=== PATIENT | male | born 1970 | race Caucasian/White ===

== ENCOUNTER → 2022-08-28 08:59 | Outpatient (CLI) | payer OTHER, SELFPAY ==
--- NOTE | ~2022-08-28 | XR_ITS ---
Right Knee Technique: AP, lateral, and sunrise views were obtained. Clinical History: Pain Findings: No fracture or dislocation is seen. Findings suggestive of chronic Lester-Schlatter's disea se noted. Osseous alignment is anatomic. Joint spaces are preserved without degenerative or erosive c hange. Soft tissues are unremarkable. No joint effusion is seen. Impression: No acute abnormality seen. Probable chronic Lester-Schlatter's disease. Reviewed, dictated and finalized at location M. Impression: No acute abnormality seen. Probable chronic Florence-Schlatter's disease.
== END ==
PROVIDERS: PCP Nurse Practitioner Family; Visit Provider Nurse Practitioner Family
DX: M25.561 Pain in right knee (principal)
CPT/HCPCS: 73564

== ENCOUNTER 2023-07-20 09:40 | Emergency (ER) | payer OTHER, SELFPAY ==
--- NOTE | ~2023-07-20 | XR_ITS ---
EXAMINATION: XR shoulder RT min 2V, XR humerus RT DATE: 07/20/2023 10:48 INDICATION: Right shoulder pain post fall TECHNIQUE: 1. AP internally and externally rotated, AP oblique externally rotated and transscapular Y views of t he affected shoulder were obtained. 2. Internal and externally rotated views of the right humerus were obtained. COMPARISON: None FINDINGS: Normal alignment at the right shoulder and elbow. No acute fracture. Old healed fractures of the pos terolateral right 6th-9th ribs. Mild glenohumeral osteoarthritis with mild nonuniform joint space luke rowing and small marginal osteophytes along the posterior glenoid. Additional mild osteoarthritis of the right elbow and acromioclavicular joints. Soft tissues are unremarkable. Visualized portion of th e lungs are clear. 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 No acute osseous abnormality. Reviewed, dictated and finalized at location A. 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 No acute oss eous abnormality.
[2023-07-20 09:45] VITALS: BP 172/129; PULSE 106; RESP 16; O2SAT 98
[2023-07-20 09:50] VITALS: TEMP 36.8
[2023-07-20 09:56] VITALS: BP 155/96; PULSE 102; RESP 16; O2SAT 98
--- NOTE | 2023-07-20 10:33 | ED.GENADULT ---
HPI - General Adult General Chief complaint: Fall Stated complaint: FALL INTO DITCH, R ARM PAIN Time Seen by Provider: 07/20/23 09:46 Source: patient Mode of arrival: ambulatory Limitations: no limitations History of Present Illness HPI narrative: This is a 53-year-old male who presents to the ED with chief complaint of a fall occurring just prior to arrival. 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 He reports he fell directly onto the right shoulder. he reports pain to the right anterior shoulder and right anterior humerus. pain radiates inferiorly at times. Denies numbness, weakness, further sites of pain or injury. Related Data Allergies Allergy/AdvReac Type Severity Reaction Status Date / Time No Known Allergies Allergy Mild Verified 04/08/12 15:41 Review of Systems Review of Systems: All systems as dictated in HPI Exam Narrative: GENERAL: Well-appearing, well-nourished, and in no acute distress. HEAD: Normocephalic, atraumatic. EYES: PERRLA and EOMI. ENT: Nares clear, no rhinorrhea or epistaxis. Mucous membranes moist. Oropharynx without tonsillar hypertrophy exudate or other lesions. NECK: Supple. No adenopathy or masses. CHEST: No respiratory distress. Clear to auscultation. No wheezes rales or rhonchi HEART: Regular rate and rhythm. No murmur heard. Normal peripheral pulses. ABDOMEN: Soft, nontender, nondistended, normal active bowel sounds. MSK: R UE: tenderness to the anterior humerus and anterior shoulder. No bruising or swelling. No deformity. Significant difficulty with active and passive range motion of the shoulder due to pain elbow and wrist are benign L UE: Benign SKIN: Warm, dry, no rash. NEURO: Alert and oriented x3. No focal deficits. PSYCH: Normal mood and affect. Course Vital Signs Vital signs: Vital Signs Pulse Rate 106 H 07/20/23 09:45 Respiratory Rate 16 07/20/23 09:45 Blood Pressure 172/129 H 07/20/23 09:45 Pulse Oximetry 98 07/20/23 09:45 Oxygen Delivery Room Air 07/20/23 09:45 Temperature 98.3 F 07/20/23 09:50 Pulse Rate 97 07/20/23 12:02 Respiratory Rate 16 07/20/23 12:02 Blood Pressure 140/85 07/20/23 12:02 Pulse Oximetry 98 07/20/23 12:02 Oxygen Delivery Room Air 07/20/23 09:45 Medical Decision Making MDM Narrative Medical decision making narrative: This is a 53-year-old male who presents to the ED with chief complaint of right shoulder injury, falling in a ditch. Vitals are normal. Exam shows difficulty with range of motion of the shoulder. No bruising or deformity. X-rays of the right shoulder and right humerus are negative for any acute osseous findings. Symptoms are consistent with rotator cuff injury. He was given a sling for comfort. Encouraged follow-up with his PCP. Pt will be discharged in stable condition. Return precautions given and supportive measures discussed. Pt is understanding and agreeable with plan for discharge and follow-up with PCP. Vital Signs Vital Signs: Vital Signs Pulse Rate 106 H 07/20/23 09:45 Respiratory Rate 16 07/20/23 09:45 Blood Pressure 172/129 H 07/20/23 09:45 Pulse Oximetry 98 07/20/23 09:45 Oxygen Delivery Room Air 07/20/23 09:45 Temperature 98.3 F 07/20/23 09:50 Pulse Rate 97 07/20/23 12:02 Respiratory Rate 16 07/20/23 12:02 Blood Pressure 140/85 07/20/23 12:02 Pulse Oximetry 98 07/20/23 12:02 Oxygen Delivery Room Air 07/20/23 09:45 Discharge Plan Discharge Clinical Impression: Injury of right shoulder Patient Disposition: Home, Self-Care Condition: Stable Instructions: Antibiotic Form Additional Instructions: your x-rays today do not show any evidence of fracture. There is likely a rotator cuff injury. Use the sling for comfort. Follow-up closely with PCP. This may need physical therapy. In the meantime use Tylenol and ibuprofen every 4-6 hours a
[2023-07-20] MEDS: ACETAMINOPHEN 500 MG TABLET 1000 MG PO (10:53)
[2023-07-20] MEDS: IBUPROFEN 400 MG TABLET 800 MG PO (10:53)
[2023-07-20 11:57] VITALS: BP 140/85; PULSE 97; RESP 16; O2SAT 98
[2023-07-20 12:02] VITALS: BP 140/85; PULSE 97; RESP 16; O2SAT 98
== END 2023-07-20 12:04 | disposition home or self-care (01) ==
PROVIDERS: Emergency Provider Physician Assistant; PCP Nurse Practitioner Family
DX: S49.91XA Unspecified injury of right shoulder and upper arm, initial encounter (principal); W01.0XXA Fall on same level from slipping, tripping and stumbling without subsequent striking against object, initial encounter
CPT/HCPCS: 73030; 73060; 99283; A4565; A9270

== ENCOUNTER 2023-09-10 06:50 | Outpatient (CLI) | payer OTHER, SELFPAY ==
--- NOTE | ~2023-09-10 | MR_ITS ---
EXAMINATION: MR shoulder RT wo con DATE: 09/10/2023 07:40 INDICATION: Right shoulder pain. TECHNIQUE: Magnetic resonance imaging (MRI) of the right shoulder was performed without intravenous c ontrast. Sequences included axial PD-weighted FS FSE, coronal oblique PD-weighted FS FSE and T2-weigh nory FS FSE, and sagittal oblique T2-weighted FS FSE and T1-weighted FSE. COMPARISON: Right shoulder radiographs 07/20/2023 FINDINGS: Coracoacromial arch: The acromion undersurface is curved in morphology (type II). There is severe acromioclavicular joint osteoarthritis. There is moderate subacromial/subdeltoid bursitis that communicates with an acromiocl avicular joint effusion. Rotator cuff: There is a full-thickness tear of supraspinatus and infraspinatus tendons measuring 4.8 cm anterior t o posterior by 3.6 cm proximal to distal. Teres minor tendon is normal. There is a full-thickness tea r of subscapularis tendon. There is mild fatty atrophy of supraspinatus, infraspinatus, and subscapul vin muscle bellies. Biceps tendon and glenoid labrum: Biceps tendon is in bicipital groove. There is a partial tear of intra-articular biceps tendon. There is degeneration of the glenoid labrum without well-defined tear. Fluid: There is a moderate-sized glenohumeral joint effusion. Bones/cartilage: There is cartilage surface irregularity of glenoid and humeral head. IMPRESSION: 1. Massive full-thickness rotator cuff tear. 2. Mild glenohumeral joint chondrosis. 3. Severe acromioclavicular joint osteoarthritis. 4. Partial tear of intra-articular biceps tendon. 5. Moderate-sized glenohumeral joint effusion, moderate subacromial/subdeltoid bursitis, and an acrom ioclavicular joint effusion, which all communicate. Reviewed, dictated and finalized at location A. IMPRESSION: 1. Massive full-thickness rotator cuff tear. 2. Mild glenohumeral joint chondrosis. 3. Severe acromioclavicular joint osteoarthritis. 4. Partial tear of intra-articular biceps tendon. 5. Moderate-sized glenohumeral joint effusion, moderate subacromial/subdeltoid bursitis, and an acromioclavicular joint effusion, which all communicate.
== END 2023-09-10 06:51 ==
LOC: MICIMG 06:51
PROVIDERS: PCP Orthopaedic Surgery; Visit Provider Orthopaedic Surgery
DX: M25.511 Pain in right shoulder (principal); M75.101 Unspecified rotator cuff tear or rupture of right shoulder, not specified as traumatic; M94.8X1 Other specified disorders of cartilage, shoulder; M19.011 Primary osteoarthritis, right shoulder; S46.211A Strain of muscle, fascia and tendon of other parts of biceps, right arm, initial encounter; M25.411 Effusion, right shoulder; M75.51 Bursitis of right shoulder
CPT/HCPCS: 73221

== ENCOUNTER 2023-10-07 01:00 | Day surgery (SDC) | payer OTHER, SELFPAY ==
[2023-09-28 15:02] VITALS: BMI 31.2
--- NOTE | 2023-09-28 15:07 | PC.NURSE ---
Report to the Outpatient Waiting Room, entrance under the green pavilion located off [facility], at time 0830 on date 10/07/23. Planned Procedure Time: 1030. Time changes happen often and if your time is changed the preop area will call you the afternoon before. - You and your visitor will be asked to self-screen and do not enter if you have any COVID symptoms. - A mask is optional within the hospital at this time. Patients may have clear liquids (water, carbonated beverages, clear teas, apple juice) until 3 hours prior to surgery with a maximum of 20 ounces. - No food from midnight until time of surgery Take the following medications with a SIP of water the morning of surgery: NONE DO NOT STOP ANY OF YOUR OTHER PRESCRIPTION MEDICATIONS PRIOR TO SURGERY ?EXCEPT THE FOLLOWING Medications to discontinue per physician: N/A Date to take last dose: N/A Please no make-up, nail luxembourgish, hairspray, perfume, deodorant, or body powder the day of surgery. No jewelry (including any body piercings) or valuables the day of surgery, leave them at home. Please take a shower or bath the night before, or the morning of, surgery with an antibacterial soap. Wear comfortable, loose fitting clothing. - Jewelry must be removed prior to entering the operating room. Rings and piercings that are not removed may be cut off. - The hospital will not accept responsibility for valuables. - Please leave all valuables, including medications, at home the day of surgery. If you are going home after surgery, a licensed regional dedicated truck driver must drive you home. - NO public transportation without another adult if you receive anesthesia. - We recommend that an adult stay with you for 24 hours following discharge. - We also recommend that you do not drive, make important decision, drink alcoholic beverages, or take any drugs that were not prescribed by your health care provider for at least 24 hours after your discharge time. Follow any additional instructions given to you from your surgeon. If you or anyone in your household have experienced Covid symptoms in the past week, please notify your surgeon or the nurse liaison at the phone number below for possible testing. Telephone instructions given to PT - EVELYN and asked if any additional questions and then verbalized understanding. Patient advised to call surgeon office or pre surgery nurse liaison [phone] if any additional questions.
--- NOTE | 2023-10-01 10:35 | PM.IMHP ---
H&P: HPI History of Present Illness Date/Time: 10/01/23 10:35 Chief Complaint: Patient has pain in right shoulder. He has a good size rotator cuff tear. He has failed conservative treatment like to consider operative intervention. Review of Systems Musculoskeletal: Musculoskeletal: Reports arthralgias, Reports joint swelling and Reports stiffness PMF Past Medical History Medical History (Updated 08/13/23 @ 09:05 by Gavin Mckenna MD) Arthritis Cerumen impaction Elevated BP without diagnosis of hypertension Encounter to establish care Right shoulder pain Snoring Tobacco abuse Surgical History Surgical History (Updated 08/13/23 @ 08:56 by Maribeth Ferguson [facility]) H/O knee surgery 2022- right knee scope Previous back surgery 2011 Family History Family History Father Diabetes mellitus Heart disease Mother Lung cancer Social History Social History (Updated 09/17/23 @ 12:58 by Erika Thompson [facility]) Smoking packs per day: 0.5 Smoking cigarettes per day: 10.0 Years smoked: 6 Smoking pack-years: 3.00 Smoking status: Current every day smoker Tobacco type: cigarettes Smokeless tobacco user: chewing tobacco Alcohol intake: former Alcohol use details: QUIT MID-AUGUST 2023 WAS DRINKING A LOT OF BEER PRIOR TO THAT Substance use: never Substance use type: does not use Do You Feel Safe in your Home?: Yes Lack of Transportation: No Lack of Food: Never True Current Housing: I Do Not Have Housing Concerned About Future Housing: No Difficulty Paying Gas/Electric Bills: No Difficulty Paying for Meds: No Currently Unemployed: YES Education: High School Diploma/GED Difficulty w/ Childcare or Family Care: No Living arrangements: with family Occupation/Education: occupation Additional occupation/education comments: road maint Gender identity (if verbalized by the patient): Male Spiritual care concerns: No Meds Home Medications and Allergies Home Medications Medication Instructions Recorded Confirmed Type latanoprost 0.005 % eye drops 1 drp EACH EYE HS 08/10/23 09/28/23 History Allergies Allergy/AdvReac Type Severity Reaction Status Date / Time No Known Allergies Allergy Mild Verified 09/28/23 15:02 Exam Narrative: Patient is weak in abduction external rotation has pain with any manipulation of shoulder impingement. Neurologically he appears to be intact. Eyes: General: appearance normal, both eyes and all related structures Neck: Neck: supple Resp: Effort & Inspection: normal respiratory effort Auscultation: clear to auscultation bilaterally Cardio: Rate: regular rate Radiology Reports: Comments: Patient: Luis Vasquez : 1970 MR#: [id number] Age: 53 Loc: [facility]? ? ADM Date: 09/10/23Attending Dr: Gavin Mckenna M.D. Ordering Physician: Gavin Mckenna MD Date of Service: 09/10/23 Procedure(s): MR shoulder RT wo con EXAMINATION: MR shoulder RT wo con DATE: 09/10/2023 07:40 INDICATION: Right shoulder pain. TECHNIQUE: Magnetic resonance imaging (MRI) of the right shoulder was performed without intravenous contrast. Sequences included axial PD-weighted FS FSE, coronal oblique PD-weighted FS FSE and T2-weighted FS FSE, and sagittal oblique T2-weighted FS FSE and T1-weighted FSE. COMPARISON: Right shoulder radiographs 07/20/2023 FINDINGS: Coracoacromial arch: The acromion undersurface is curved in morphology (type II). There is severe acromioclavicular joint osteoarthritis. There is moderate subacromial/subdeltoid bursitis that communicates with an acromioclavicular joint effusion. Rotator cuff: There is a full-thickness tear of supraspinatus and infraspinatus tendons measuring 4.8 cm anterior to posterior by 3.6 cm proximal to distal. Teres minor tendon is normal. There is a full-thickness tear of subscapularis tendon. There is
[2023-10-07] VITALS (7 sets, daily range): BP systolic 109–155; BP diastolic 63–85; PULSE 74–90; RESP 14–20; TEMP 36.4–36.7; O2SAT 96–100; BMI 31.6
[2023-10-07] MEDS: LACTATED RINGERS 1,000 ML 30 ML IV CONT ×2 (09:10→12:14)
[2023-10-07] MEDS: KETOROLAC 15 MG/ML VIAL (*BKC) IV PUSH (09:21)
[2023-10-07] MEDS: ACETAMINOPHEN 500 MG TABLET 1000 MG PO (09:21)
--- NOTE | 2023-10-07 09:50 | WPDANESEPPF ---
Anes - Initial Pre Proc Eval Procedure: Operation Date: 10/07/23 10:30 Proposed Procedures p Right Shoulder Rotator Cuff Repair with Distal Clavicle Excision - Gavin Mckenna MD Date/Time: 10/07/23 09:50 Surgeon: Gavin Mckenna MD Pre Op Diagnosis: maargentinave right rot. cuff tear, ac arthritis Patient Data Age: 53 Gender: M Height: 1.8 m Weight: 101.7 kg Allergies Allergy/AdvReac Type Severity Reaction Status Date / Time No Known Allergies Allergy Mild Verified 10/07/23 09:26 Home Medications Medication Instructions Recorded Confirmed Type latanoprost 0.005 % eye drops 1 drp EACH EYE HS 08/10/23 09/28/23 History hydrocodone 7.5 mg-acetaminophen 1 tablet PO Q4H PRN pain #40 tabs 10/07/23 Rx 325 mg tablet Patient hx anesthesia problems: none Family hx anesthesia problems: none Results Review: All pre-operative results and documents have been reviewed as part of the pre-operative evaluation. [facility] Past Medical History Medical History Arthritis Cerumen impaction Elevated BP without diagnosis of hypertension Encounter to establish care Right shoulder pain Snoring Tobacco abuse Surgical History Surgical History (Updated 08/13/23 @ 08:56 by Maribeth Ferguson CMA) H/O knee surgery 2022- right knee scope Previous back surgery 2011 Family History Family History Father Diabetes mellitus Heart disease Mother Lung cancer Social History Social History (Updated 09/17/23 @ 12:58 by Erika Thompson CMA) Smoking packs per day: 0.5 Smoking cigarettes per day: 10.0 Years smoked: 6 Smoking pack-years: 3.00 Smoking status: Current every day smoker Tobacco type: cigarettes Smokeless tobacco user: chewing tobacco Alcohol intake: former Alcohol use details: QUIT MID-AUGUST 2023 WAS DRINKING A LOT OF BEER PRIOR TO THAT Substance use: never Substance use type: does not use Do You Feel Safe in your Home?: Yes Lack of Transportation: No Lack of Food: Never True Current Housing: I Do Not Have Housing Concerned About Future Housing: No Difficulty Paying Gas/Electric Bills: No Difficulty Paying for Meds: No Currently Unemployed: YES Education: High School Diploma/GED Difficulty w/ Childcare or Family Care: No Living arrangements: with family Occupation/Education: occupation Additional occupation/education comments: road maint Gender identity (if verbalized by the patient): Male Spiritual care concerns: No Anes - Eval Final PreProcedure Day of Procedure 10/07/23 09:50 Patient weight: normal Heart: regular rate and rhythm Lungs: clear to auscultation Airway: Mallampati scale class II and special considerations (Missing several teeth, none loose per pt. ) poor dentition Neurological: alert and oriented Last oral intake: >/= 8 hours ASA classification: II Emergent: no Anesthetic plan: proceed Anesthesia type and monitoring: general ETT and standard monitoring Results Review: All pre-operative results and documents have been reviewed as part of the pre-operative evaluation. Pt active smoker, smoked this am prior to surgery. Informed Consent: The patient's anesthetic plan and its attendant risks and benefits were discussed with the patient/family/POA. Questions were solicited and answers provided to the satisfaction of the patient/family/POA.
--- NOTE | 2023-10-07 10:14 | WPDHPUPDATE1 ---
History and Physical Update Update Date/Time: 10/07/23 10:14 History and Physical has been reviewed, including an updated exam of the patient. There are NO changes in the patient's condition. Risks, benefits, and alternatives have been discussed and questions answered. Patient agrees to proceed with procedure.
[2023-10-07] MEDS: ceFAZolin 2 GM/D5W 50 ML 2 GM/50 ML BAG IVPB (10:17)
--- NOTE | 2023-10-07 10:17 | WPDANESPNB ---
Anes - Peripheral Nerve Block Date/Time: 10/07/23 10:17 I have discussed with the patient/family/POA the placement of a peripheral nerve block for post-operative pain management, including associated risks, benefits, complications, and side effects. Alternative methods of post-operative analgesia were detailed. Questions were solicited and answers provided to the satisfaction of the patient/family/POA. Time-Out: A pre-procedural Time-Out was completed immediately before starting the procedure and confirmed: Patient Identification, Site, Procedure, Patient Position and the Availability of Requisite Equipment. Clinical Indications: Acute post-operative pain management requested by the operative surgeon. Nerve Block Insertion Note Anes-nerve block: interscalene right Patient position: supine Skin prep: chlorhexidine Needle: 22 gauge, stimulating, insulated echogenic needle. Needle length: 80 mm Injectate: other (Bupiv 0.5%, 18 mls. ) Observations: tolerated well Procedure start time:: 1005 Procedure end time:: 1010
[2023-10-07] MEDS: BUPIVACAINE/EPINEPHRINE 0.5% 50 ML VIAL 30 ML INFILTRATE (10:58)
--- NOTE | 2023-10-07 11:55 | W.PM.PROC2 ---
Procedure Note - Detailed Date of Procedure 10/07/23 Pre-op Diagnosis Massive right rotator cuff tear A/C arthritis Post-op Diagnosis Same Procedure Performed Rotator cuff repair, distal clavicle excision Surgeon Gavin Mckenna MD Anesthesia General Description of Procedure Patient brought to the operative room #7. A general anesthetic was administered. The patient was placed in the beach chair position with the RIGHT shoulder exposed.? After sterile prep and drape, standard posterior and lateral portals were used for arthroscopy. The joint itself looked reasonably good the biceps tendon was intact.? He had massive tearing of the rotator cuff with retraction in the supraspinatus and inferspinatus region. The tears were mobilized as I could.? The subacromial space had an intense bursa, this was debrided.? He was quite tight initially. I then proceeded to open the shoulder. A longitudinal incision made from the AC joint distalward over the shoulder.? Dissection carried down to the fascia. The fascia overlying the acromioclavicular joint was split. The AC joint found and a distal clavicle excision performed removing 3 to 4 millimeters of bone.? The edges beveled.? The deltoid was then split from the tip of the acromion for about 3 cm. The remainder of the bursa was debrided.? A complete tear of the supraspinatus and infraspinatus was noted. This was mobilized and repaired to bone using #2 Ethibond suture.? A MiTek suture anchor was added for stability reinforcement. The repair was fair as the it was under tension despite the mobilization of the tissue quality was only fair. At this point the deltoid was repaired to itself,the acromion and the trapezius with #2 Ethibond. The skin was closed with 2-0 Vicryl and lin.? Sterile dressing applied patient tolerated well left the operating room satisfactory condition. The size of the tear, the time between the tear, and the possibility of not being able to repair the rotator cuff were discussed with the patient before surgery. Estimated Blood Loss 50 Drains No Packing No Pathology None sent Complications No immediate complications Condition Stable Disposition PACU [facility] Billing Surgery - Charge Forward: Surgery Billing (RTC Repair [id number] CDE [id number])
== END 2023-10-07 13:47 | disposition home or self-care (01) ==
PROVIDERS: PCP Nurse Practitioner Family; Visit Provider Orthopaedic Surgery
PROC: (CPT 23420; principal; 2023-10-07 10:30)
DX: S46.011A Strain of muscle(s) and tendon(s) of the rotator cuff of right shoulder, initial encounter (principal); W17.89XA Other fall from one level to another, initial encounter; F17.210 Nicotine dependence, cigarettes, uncomplicated; F17.220 Nicotine dependence, chewing tobacco, uncomplicated; G89.18 Other acute postprocedural pain
CPT/HCPCS: 23410; 23120; 64415; A9270; C1713; J0690; J1100; J1170; J1885; J2250; J2371; J2405; J3010; J7120

== ENCOUNTER 2024-07-16 11:18 | Outpatient (CLI) | payer OTHER, SELFPAY ==
--- NOTE | ~2024-07-16 | MR_ITS ---
EXAMINATION: MR knee RT wo con DATE: 07/16/2024 12:22 INDICATION: Right knee pain. Tear of medial meniscus. TECHNIQUE: Magnetic resonance imaging (MRI) of the right knee was performed without intravenous contr ast. Sequences included axial PD-weighted FS FSE, coronal PD-weighted FSE and PD-weighted FS FSE, sag ittal PD-weighted FSE, and sagittal T2-weighted FS FSE. COMPARISON: Right knee radiographs 07/07/2024, MRI 09/30/2022 FINDINGS: Medial compartment: There is a large osteochondral defect of medial femoral condyle with absent osteochondral fragment an d moderate edema-like marrow signal intensity. There is full-thickness cartilage loss of tibial condy le involving the central articular surface with moderate subchondral edema-like marrow signal intensi ty. Osteophytes are noted. Lateral compartment: Lateral meniscus is normal. There is cartilage surface irregularity of tibial condyle and femoral con dyle. Osteophytes are noted. Patellofemoral compartment: There is cartilage surface irregularity of patella and trochlea. Osteophytes are noted. Ligaments and tendons: The anterior and posterior cruciate ligaments are normal. There are changes of prior sprains of media l collateral ligament and fibular collateral ligament characterized by thickening and increased signa l intensity. There is mild patellar tendinopathy. Fluid: There is a large knee joint effusion. There is mild prepatellar and superficial infrapatellar bursiti s. IMPRESSION: 1. Severe chondrosis and large osteochrondral defect of medial compartment and mild chondrosis of lat eral and patellofemoral compartments. 2. Tear of medial meniscus. 3. Large knee joint effusion. Reviewed, dictated and finalized at location A. ING ENGINEER IMPRESSION: 1. Severe chondrosis and large osteochrondral defect of medial compartment and mild chondrosis of lateral and patellofemoral compartments. 2. Tear of medial meniscus. 3. Large knee joint effusion.
== END 2024-07-16 11:19 | disposition home or self-care (01) ==
LOC: MICIMG 11:21
PROVIDERS: PCP Nurse Practitioner Family; Visit Provider Orthopaedic Surgery
DX: M25.461 Effusion, right knee (principal); S83.241D Other tear of medial meniscus, current injury, right knee, subsequent encounter; X58.XXXD Exposure to other specified factors, subsequent encounter
CPT/HCPCS: 73721

== ENCOUNTER 2025-02-28 09:57 | Outpatient (CLI) | payer OTHER, SELFPAY ==
--- NOTE | 2025-02-28 10:53 | ECG_ITS ---
Test Date: 2025-02-28 11:07:35 Measurements Intervals [employer] Rate: 69 P: 53 NC: 142 QRS: 55 QRSD: 105 T: 38 QT: 394 QTc: 423 Interpretive Statements SINUS RHYTHM NONSPECIFIC ST ELEVATION [0.05+ mV ST ELEVATION] ABNORMAL ECG No previous ECG available for comparison Electronically Signed On 02-28-2025 12:10:54 CDT by Luis Grant M.D.
[2025-02-28 11:13] LABS: Hematocrit 45.3 % (42.0-52.0); Hemoglobin 15.8 g/dL (14.0-18.0); Immature Granulocyte Percent A 0.2 % (0-0.5); Lymphocytes Absolute Auto 1.60 K/mm3 (0.9-3.2); Mean Corpuscular HGB Conc 34.9 g/dl (32-36); Mean Corpuscular Hemoglobin 33.6 pg (26-34); Mean Corpuscular Volume 96.4 fl (80-100); Nucleated Red Blood Cells Absolute Auto 0.000 K/mm3 (0.0-0.012); Nucleated Red Blood Cells Perc 0.0 % (0.0-0.2); Platelet Count Result 161 k/mm3 (150-375); Red Blood Count 4.70 M/mm3 (4.6-6.20); White Blood Count 5.5 K/mm3 (4.5-10.0)
--- OUTSIDE RECORDS SUMMARY | 2025-02-28 11:31 | XMS_ITS | Clinical Summary ---
Author Organization [facility] Address [address] [place] [address] Care Team Providers Care Grinder Operator External Tool Name Role Phone Georgia Salgado MD Primary Care Provider + [phone] Source Comments [facility],non-owned Affiliates and Associated Physician Practices is amultiple site organization consisting of ambulatory clinics and hospital sitesin [place], [place], [place] and [place]. This disclosure is being madepursuant to the Care Everywhere program and may not contain all information available regarding this patient. Last updated 18.[facility] Allergies No known active allergies Medications * Be aware that medications may not be up to date on this document. Alwaysverify current medications with the patient. 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 Not on file Not on file Last Filed Vital Signs Vital Sign Reading Time Taken Comments Blood Pressure 140/92 04/22/2012 1:36 PM PRIMER CHARGER Pulse - - Temperature 36.7 C (98 F) 04/22/2012 1:36 PM PRIMER CHARGER Respiratory Rate - - Oxygen Saturation - - Inhaled Oxygen Concentration - - Weight 117.9 kg (260 lb) 04/22/2012 1:36 PM PRIMER CHARGER Height 180.3 cm (5' 11) 04/22/2012 1:36 PM PRIMER CHARGER Body Mass Index 36.26 04/22/2012 1:36 PM PRIMER CHARGER Plan of Treatment Health Maintenance Due Date Last Done Comments COLOGUARD (AGES 45-75) - COL ON CA SCREENING 1968 COLON MONITORING 1968 COLONOSCOPY - COLON CA SCREENING 1968 CT COLONOGRAPHY - COLON CA SCREENING 1968 Colorectal Cancer Screening 1968 FIT - COLON CA SCREENING 1968 FLEX SIG - COLON CA SCREENING 1968 LIPID TESTING 1968 HIV SCREENING 01/20/1983 HEPATITIS C SCREENING 01/16/1986 DTAP/TDAP/TD VACCINES (1 - Tdap) 01/20/1987 HEPATITIS B VACCINE (1 of 3 - 19+ 3-dose series) 01/20/1987 PNEUMOCOCCAL VACCINE 50+ (1 of 1 - PCV) 01/20/2018 ZOSTER VACCINE (1 of 2) 01/20/2018 DEPRESSION SCREENING 06/15/2024 COVID-19 VACCINE (1 - 2023-2 5 season) 2025 INFLUENZA VACCINE (#1) 2025 HIB VACCINE Aged Out No longer eligi ble based on patient's age to complete this topic HPV VACCINE Aged Out No longer eligi ble based on patient's age to complete this topic MENINGOCOCCAL (Group B) VACC INE SHARED DECISION-MAKING Aged Out No longer eligibl e based on patient's age to complete this topic MENINGOCOCCAL GROUPS A/C/Y/W VACCINE Aged Out No longer eligible b ased on patient's age to complete [place] [address] [place] [id number] [facility] Care Teams Grinder Operator External Tool Relationship Specialty Start Date End Date Georgia Salgado MD [address] [place] [phone] PCP - General Family Medicine 04/22/12
[2025-02-28 11:36] LABS: Albumin Level 4.5 g/dL (3.5-5.1)
[2025-02-28 11:39] LABS: Anion Gap 9 mmol/L (4-12); Blood Urea Nitrogen 12 mg/dL (9-20); Calcium 9.3 mg/dL (8.4-10.2); Carbon Dioxide 25 mmol/L (22-30); Chloride 101 mmol/L (98-107); Estimated Glomerular Filt Rate > 60; Glucose 130 mg/dL (65-110); Potassium 3.9 mmol/L (3.4-5.0); Sodium 135 mmol/L (137-145)
[2025-02-28 12:24] LABS: MRSA (PCR) NOT DETECTED (NOT DETECTE)
== END 2025-02-28 09:58 | disposition home or self-care (01) ==
PROVIDERS: Anesthesiology; PCP Nurse Practitioner Family; Visit Provider Orthopaedic Surgery
DX: Z01.818 Encounter for other preprocedural examination (principal); M17.11 Unilateral primary osteoarthritis, right knee; E11.9 Type 2 diabetes mellitus without complications; R94.31 Abnormal electrocardiogram [ECG] [EKG]
CPT/HCPCS: 36415; 80048; 80307; 82040; 85025; 86850; 86900; 86901; 87641; 93005

== ENCOUNTER 2025-03-13 00:33 | Day surgery (SDC) | payer OTHER, SELFPAY ==
[2025-02-28 10:11] VITALS: BP 131/72; PULSE 74; RESP 16; TEMP 37.2; O2SAT 99; BMI 31.0
--- NOTE | 2025-02-28 10:26 | PC.NURSE ---
Report to the Outpatient Waiting Room, entrance under the green pavilion located off [facility], at time __6:00AM___ on date ___03/13/25__. Planned Procedure Time: ___7:30AM___.? Time changes happen often and if your time is changed the preop area will call you the afternoon before. - You and your visitor will be asked to self-screen and do not enter if you have any COVID symptoms. Please call surgeon if you need to reschedule. - A mask is optional within the hospital at this time. Patients may have clear liquids (water, carbonated beverages, clear teas, apple juice) until 3 hours prior to surgery (4:30AM) with a maximum of 20 ounces. - No food from midnight until time of surgery and no smoking, or chewing tobacco (or any form of nicotine). No chewing gum, candy or mints. Take only the following medications with a SIP of water on the morning of surgery: ____NONE DO NOT STOP ANY OF YOUR OTHER PRESCRIPTION MEDICATIONS PRIOR TO SURGERY EXCEPT THE FOLLOWING Hold all vitamins and supplements for 3 days per anesthesiologist. Medications to discontinue per physician ____HOLD VOLTAREN OINTMENT PER DR EDWARDS Date to take last dose Please no make-up, nail malagasy, hairspray, perfume, deodorant, or body powder the day of surgery.? No jewelry (including any body piercings) or valuables the day of surgery, leave them at home.? Please take a shower or bath the night before, or the morning of, surgery with an antibacterial soap.? Wear comfortable, loose fitting clothing.? - Jewelry must be removed prior to entering the operating room.? Rings and piercings that are not removed may be cut off. - The hospital will not accept responsibility for valuables.? - Please leave all valuables, including medications, at home the day of surgery. If you are going home after surgery, a licensed local company refrigerated truck driver must drive you home.? - NO public transportation without another adult if you receive anesthesia. - We recommend that an adult stay with you for 24 hours following discharge. - We also recommend that you do not drive, make important decision, drink alcoholic beverages, or take any drugs that were not prescribed by your health care provider for at least 24 hours after your discharge time. Follow any additional instructions given to you from your surgeon. Telephone instructions given to ____PATIENT and asked if any additional questions and then verbalized understanding. Patient advised to call surgeon office or pre surgery nurse liaison [phone] if any additional questions.
--- NOTE | 2025-03-07 07:25 | PM.IMHP ---
H&P: HPI History of Present Illness Date/Time: 03/07/25 07:25 Chief Complaint: Patient is knee pain right. Pain is worse with activity somewhat relieved by rest. He has failed conservative treatment like to consider surgical intervention. Review of Systems Musculoskeletal: Musculoskeletal: Reports arthralgias, Reports joint swelling and Reports stiffness Neurologic: Reports abnormal gait [facility] Past Medical History Medical History Swelling of right elbow Hypertension Elevated LDL cholesterol level Diabetes type 2 Elevated blood sugar Olecranon bursitis of left elbow Screening for colon cancer Essential tremor Glaucoma right eye Tobacco abuse Snoring Cerumen impaction Right shoulder pain Elevated BP without diagnosis of hypertension Encounter to establish care Arthritis Surgical History Surgical History H/O shoulder surgery 10/07/23 H/O knee surgery 2022- right knee scope Previous back surgery 2011 Family History Family History Father Diabetes mellitus Heart disease Mother Lung cancer Sibling Alcoholism Social History Social History (Updated 01/31/25 @ 08:03 by Maribeth Ferguson CMA) Smoking packs per day: 1 Smoking cigarettes per day: 20.0 Years smoked: 7 Smoking pack-years: 7.00 Smoking status: Former smoker Tobacco type: cigarettes Smokeless tobacco user: chewing tobacco Second hand tobacco smoke exposure: No Smoking end date: 05/15/24 Additional smoking assessment comments: CHEWING TOBACCO SINCE 1982, SWITCHED TO NICOTINE FREE CHEW 02/01/25 Alcohol intake: current Drinks per week: 18 Alcohol use details: QUIT MID-AUGUST 2023 WAS DRINKING A LOT OF BEER PRIOR TO THAT Substance use: never Substance use type: does not use Do You Feel Safe in your Home?: Yes Lack of Transportation: No Lack of Food: Never True Current Housing: I Have Housing Concerned About Future Housing: No Difficulty Paying Gas/Electric Bills: No Difficulty Paying for Meds: No Currently Unemployed: No Education: High School Diploma/GED Difficulty w/ Childcare or Family Care: No Living arrangements: with family Additional living arrangements comments: S.O. AND 2 CHILDREN Occupation/Education: occupation Additional occupation/education comments: road maintenance Gender identity (if verbalized by the patient): Male Spiritual care concerns: No Meds Home Medications and Allergies Home Medications ?Medication ?Instructions ?Recorded ?Confirmed ?Type latanoprost 0.005 % eye drops 1 drp EACH EYE HS 08/10/23 02/28/25 History blood-glucose meter #1 ea 07/05/24 02/28/25 Rx blood sugar diagnostic (Contour #100 ea 08/01/24 02/28/25 Rx Next Test Strips) lancets #100 ea 08/01/24 02/28/25 Rx empagliflozin 10 mg tablet 10 mg PO DAILY #30 tabs 09/20/24 02/28/25 Rx (Jardiance) losartan 50 mg tablet 50 mg PO DAILY #30 tabs 11/01/24 02/28/25 Rx diclofenac 75 mg oral tablet delay 1 ea topical DAILY PRN pain 02/28/25 02/28/25 History rel-capsaicin 0.025 % topical cream metformin 500 mg tablet,extended 500 mg PO BID 02/28/25 02/28/25 History release 24 hr (Glucophage XR) Allergies Allergy/AdvReac Type Severity Reaction Status Date / Time No Known Allergies Allergy Mild Verified 02/28/25 10:05 Exam Narrative: Patient's motion has a right knee from about 5 to 100 and 10?. He has varus deformity. He has grinding crepitus and pain with manipulation. Eyes: General: appearance normal, both eyes and all related structures Neck: Neck: supple Resp: Effort & Inspection: normal respiratory effort Cardio: Rate: regular rate Rhythm: regular rhythm Radiology Reports: Comments: Magnetic Resonance Report Signed Patient: ChristinaArnieLuis Silvia Mota EXAMINATION: MR knee RT wo con DATE: 07/16/2024 12:22 INDICATION: Right knee pain. Tear of medial meniscus. TECHNIQUE: Magnetic resonance imaging (MRI) of the right knee was performed without intravenous contrast. Sequences included axial PD-weighted FS FSE, coronal PD-weighted FSE and PD-weighted FS FSE, sagittal PD-weighted FSE, and sagittal T2-weighted FS FSE. COMPARISON: Right knee radiographs 07/07/2024, MRI 09/30/2022 FINDINGS: Medial compartment: There is a large osteochondral defect of medial femoral condyle with absent osteochondral fragment and moderate edema-like marrow signal intensity. There is full-thickness cartilage loss of tibial condyle involving the central articular surface with moderate subchondral edema-like marrow signal intensity. Osteophytes are noted. Lateral compartment: Lateral meniscus is normal. There is cartilage surface irregularity of tibial condyle and femoral condyle. Osteophytes are noted. Patellofemoral compartment: There is cartilage surface irregularity of patella and trochlea. Osteophytes are noted. Ligaments and tendons: The anterior and posterior cruciate ligaments are normal. There are changes of prior sprains of medial collateral ligament and fibular collateral ligament characterized by thickening and increased signal intensity. There is mild patellar tendinopathy. Fluid: There is a large knee joint effusion. There is mild prepatellar and superficial infrapatellar bursitis. IMPRESSION: 1. Severe chondrosis and large osteochrondral defect of medial compartment and mild chondrosis of lateral and patellofemoral compartments. 2. Tear of medial meniscus. 3. Large knee joint effusion. Reviewed, dictated and finalized at location A. I[facility] SUPPORT SPECIALIST Humerus X-Ray 07/20/23 Knee X-Ray 07/07/24 Knee MRI 07/16/24 Shoulder X-Ray 09/22/24 Shoulder MRI 09/10/23 Orthopedics Result Report 09/22/24 Assessment and Plan Assessment and plan (1) Osteoarthritis of right knee: Code(s): M17.11 - Unilateral primary osteoarthritis, right knee Status: Acute Assessment and Plan: Patient has arthritis right knee. He has thta-vt-mrox change. He also has a rather large osteochondral defect making arthroscopic intervention less helpful. He has failed conservative treatment. He would like to consider a total knee arthroplasty. I discussed the risks, benefits, limitations, and alternatives of the patient in detail. Will proceed per his request.
[2025-03-13] VITALS (12 sets, daily range): BP systolic 122–151; BP diastolic 59–93; PULSE 80–95; RESP 12–22; TEMP 35.7–37.5; O2SAT 95–100
--- NOTE | ~2025-03-13 | XR_ITS ---
EXAMINATION: [id number] DATE: 03/13/2025 09:51 INDICATION: Postoperative evaluation following right total knee arthroplasty. TECHNIQUE: Anteroposterior and lateral views of the right knee were obtained. COMPARISON: None. FINDINGS: Right total knee arthroplasty with patellar resurfacing appears well seated and in near anatomic alignment. No fractures identified. Small heterotopic ossicle at the distal patellar tendon along the cephalad margin of the anterior tibial tuberosity Expected postoperative subcutaneous and intra-articular gas. IMPRESSION: 1. Right total knee arthroplasty, negative for postoperative purposes. Reviewed, dictated and finalized at location A.
--- OUTSIDE RECORDS SUMMARY | 2025-03-13 00:35 | XMS_ITS | Clinical Summary ---
Author Organization [facility] Address [address] [place] [address] Care Team Providers Care Staffing Operations Manager Name Role Phone Georgia Salgado MD Primary Care Provider + [phone] Source Comments [facility],non-owned Affiliates and Associated Physician Practices is amultiple site organization consisting of ambulatory clinics and hospital sitesin [place], [place] and [place]. This disclosure is being madepursuant to the Care Everywhere program and may not contain all information available regarding this patient. 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 Not on file Not on file Last Filed Vital Signs Vital Sign Reading Time Taken Comments Blood Pressure 140/92 04/22/2012 1:36 PM BUSINESS RISK CONSULTANT Pulse - - Temperature 36.7 C (98 F) 04/22/2012 1:36 PM BUSINESS RISK CONSULTANT Respiratory Rate - - Oxygen Saturation - - Inhaled Oxygen Concentration - - Weight 117.9 kg (260 lb) 04/22/2012 1:36 PM BUSINESS RISK CONSULTANT Height 180.3 cm (5' 11) 04/22/2012 1:36 PM BUSINESS RISK CONSULTANT Body Mass Index 36.26 04/22/2012 1:36 PM BUSINESS RISK CONSULTANT Plan of Treatment Health Maintenance Due Date [...] to complete [place] [address] [place] [address] [facility] Care Teams Staffing Operations Manager Relationship Specialty Start Date End Date Georgia Salgado MD [address] [place] [phone] PCP - General Family Medicine 04/22/12
--- OUTSIDE RECORDS SUMMARY | 2025-03-13 00:35 | XMS_ITS | Clinical Summary ---
Author Organization [facility] Address [address] [place] [address] Care Team Providers Care Wood Heel Fitter Machine Name Role Phone Unavailable Primary Care Provider Unavailabl e Social History Tobacco Use Types Packs/Day Years Used Date Smoking Tobacco: Never Assessed Sex and Gender Information Value Date Recorded Sex Assigned at Not on file Legal Sex Male 4:41 PM CDT Gender Identity Not on file Sexual Orientation Not on file Plan of Treatment Health Maintenance Due Date Last Done Comments Colorectal Cancer Screening Colonoscopy (10 Years) 1968 Annual Physical 01/20/1971 Hepatitis C 01/20/1986 DTaP, Tdap and Td Vaccines ( 1 - Tdap) 01/20/1987 Hepatitis B Vaccines (1 of 3 - 19+ 3-dose series) 01/20/1987 Pneumococcal Vaccine: 50+ Ye ars (1 of 1 - PCV) 01/20/2018 Zoster Vaccines (1 of 2) 01/20/2018 COVID-19 Vaccine (2023-2 5 season) 2025 Meningococcal B Vaccine Aged Out No l onger eligible based on patient's age to complete this topic Meningococcal Vaccine Aged Out No viktor mely eligible based on patient's age to complete this topic RSV Immunizations Under 20 Months Aged Out No longer eligible based on patient's age to complete this topic
--- NOTE | 2025-03-13 06:56 | WPDANESEPPF ---
Anes - Initial Pre Proc Eval Procedure: Operation Date: 03/13/25 07:30 Proposed Procedures p Right Total Knee Arthroplasty - Gavin Mckenna MD Date/Time: 03/13/25 06:56 Surgeon: Gavin Mckenna MD Pre Op Diagnosis: oa right knee Patient Data Age: 55 Gender: M Height: 1.8 m Weight: 101 kg Last Vital Signs Temp 98.9 F 02/28/25 10:11 Pulse 74 02/28/25 10:11 Resp 16 02/28/25 10:11 BP 131/72 02/28/25 10:11 Pulse Ox 99 02/28/25 10:11 O2 Del Method Room Air 02/28/25 10:11 Allergies Allergy/AdvReac Type Severity Reaction Status Date / Time No Known Allergies Allergy Mild Verified 02/28/25 10:05 Home Medications ?Medication ?Instructions ?Recorded ?Confirmed ?Type latanoprost 0.005 % eye drops 1 drp EACH EYE HS 08/10/23 02/28/25 History blood-glucose meter #1 ea 07/05/24 02/28/25 Rx blood sugar diagnostic (Contour #100 ea 08/01/24 02/28/25 Rx Next Test Strips) lancets #100 ea 08/01/24 02/28/25 Rx empagliflozin 10 mg tablet 10 mg PO DAILY #30 tabs 09/20/24 02/28/25 Rx (Jardiance) losartan 50 mg tablet 50 mg PO DAILY #30 tabs 11/01/24 02/28/25 Rx diclofenac 75 mg oral tablet delay 1 ea topical DAILY PRN pain 02/28/25 02/28/25 History rel-capsaicin 0.025 % topical cream metformin 500 mg tablet,extended 500 mg PO BID 02/28/25 02/28/25 History release 24 hr (Glucophage XR) Laboratory Tests 03/13/25 06:52 POC Capillary Glucose 151 H mg/dl (65-105) Patient hx anesthesia problems: none Family hx anesthesia problems: none Results Review: All pre-operative results and documents have been reviewed as part of the pre-operative evaluation. [facility] Past Medical History Medical History Swelling of right elbow Hypertension Elevated LDL cholesterol level Diabetes type 2 Elevated blood sugar Olecranon bursitis of left elbow Screening for colon cancer Essential tremor Glaucoma right eye Tobacco abuse Snoring Cerumen impaction Right shoulder pain Elevated BP without diagnosis of hypertension Encounter to establish care Arthritis Surgical History Surgical History H/O shoulder surgery 10/07/23 H/O knee surgery 2022- right knee scope Previous back surgery 2011 Family History Family History Father Diabetes mellitus Heart disease Mother Lung cancer Sibling Alcoholism Social History Social History Smoking packs per day: 0.5 Smoking cigarettes per day: 10.0 Years smoked: 6 Smoking pack-years: 3.00 Smoking status: Former smoker Tobacco type: cigarettes Smokeless tobacco user: chewing tobacco Second hand tobacco smoke exposure: No Additional smoking assessment comments: CHEWING TOBACCO SINCE 1982, SWITCHED TO NICOTINE FREE CHEW 02/01/25 Alcohol intake: current Drinks per week: 18 Alcohol use details: QUIT MID-AUGUST 2023 WAS DRINKING A LOT OF BEER PRIOR TO THAT Substance use: never Substance use type: does not use Do You Feel Safe in your Home?: Yes Lack of Transportation: No Lack of Food: Never True Current Housing: I Have Housing Concerned About Future Housing: No Difficulty Paying Gas/Electric Bills: No Difficulty Paying for Meds: No Currently Unemployed: No Education: High School Diploma/GED Difficulty w/ Childcare or Family Care: No Living arrangements: with family Additional living arrangements comments: S.O. 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 ) Neurological: alert and oriented Last oral intake: >/= 8 hours ASA classification: III Emergent: no Anesthetic plan: proceed Anesthesia type and monitoring: general LMA and standard monitoring Results Review: All pre-operative results and documents have been reviewed as part of the pre-operative evaluation. DM fsbs 151, HTN, recent prev smoker, quit 3 weeks ago. Pt can walk 1-2 fos, no cp or sob. Informed Consent: The patient's anesthetic plan and its attendant risks and benefits were discussed with the patient/family/POA. Questions were solicited and answers provided to the satisfaction of the patient/family/POA.
--- NOTE | 2025-03-13 06:57 | WPDHPUPDATE1 ---
History and Physical Update Update Date/Time: 03/13/25 06:57 History and Physical has been reviewed, including an updated exam of the patient. There are NO changes in the patient's condition. Risks, benefits, and alternatives have been discussed and questions answered. Patient agrees to proceed with procedure.
[2025-03-13] MEDS: LACTATED RINGERS 1,000 ML 30 ML IV CONT ×2 (07:00→09:32)
[2025-03-13] MEDS: ACETAMINOPHEN 500 MG TABLET 1000 MG PO (07:00)
[2025-03-13] MEDS: VANCOMYCIN 1,500 MG/NS 500 ML 1,500 MG/500 ML BAG 250 MG IVPB (07:00)
[2025-03-13] MEDS: TRANEXAMIC ACID 1,000MG/ISO100 1,000 MG/100 ML BAG 200 MG IVPB (07:00)
[2025-03-13] MEDS: ceFAZolin 2 GM in SODIUM CHLORIDE 0.9% IV 50 ML 100 ML IVPB ×3 (07:29→22:02)
[2025-03-13] MEDS: SODIUM CHLORIDE 0.9% IV 37.7 ML, MORPHINE SULFATE INJ (*CRX) 2 MG, ROPivacaine HCL 1% 2... INFILTRATE (08:06)
--- NOTE | 2025-03-13 08:21 | WPDANESPNB ---
Anes - Peripheral Nerve Block Date/Time: 03/13/25 08:21 I have discussed with the patient/family/POA the placement of a peripheral nerve block for post-operative pain management, including associated risks, benefits, complications, and side effects. Alternative methods of post-operative analgesia were detailed. Questions were solicited and answers provided to the satisfaction of the patient/family/POA. Time-Out: A pre-procedural Time-Out was completed immediately before starting the procedure and confirmed: Patient Identification, Site, Procedure, Patient Position and the Availability of Requisite Equipment. Clinical Indications: Acute post-operative pain management requested by the operative surgeon. Nerve Block Insertion Note Anes-nerve block: adductor canal right Patient position: supine Skin prep: chlorhexidine Needle: 22 gauge, stimulating, insulated echogenic needle. Needle length: 80 mm Technique: ultrasound Injectate: other (Bupiv 0.5% 15 mls. ) Observations: tolerated well Complications: none Procedure start time:: 725 Procedure end time:: 729
[2025-03-13] MEDS: TRANEXAMIC ACID 1,000 MG/10 ML AMPUL 1000 MG IV PUSH (08:50)
--- NOTE | 2025-03-13 09:07 | P.OP_ITS ---
Procedure Note - Detailed Date of Procedure 03/13/25 Pre-op Diagnosis Osteoarthritis right knee Post-op Diagnosis Same Procedure Performed RIGHT Total Knee arthroplasty Surgeon Gavin Mckenna MD Anesthesia General Indications Pain and Arthritis Description of Procedure The patient was brought to operating room #7. A general anesthetic was administered. Placed on the operating table and sterilely prepped and draped in usual manner. A longitudinal incision was made. Tourniquet inflated to 300 mmHg for a total of 42 minutes. Dissection was carried down to the fascia. Medial parapatellar incision was made and the patella subluxated laterally. Patella cut from 26 to 16 mm. The tibia was cut perpendicular to the long axis and femur cut in 5 degrees of valgus. The components were trialed and the knee was noted to be stable with excellent motion. The soft tissues balanced, hemostasis obtained. All [address], 71 tibia, 67.5 femur, 37 mm patella, and 10 mm poly. Motion was 0-125 degrees with good stability in both flexion and extension. The wound was closed with #2 Vicryl, 2- 0 Vicryl and lin. [employer] Estimated Blood Loss 200 Drains No Packing No Pathology None sent Complications No immediate complications Condition Stable Disposition PACU [facility] Billing Surgery - Charge Forward: Surgery Billing ([id number] TKA)
[2025-03-13] MEDS: fentaNYL CITRATE INJ (*CRX) 100 MCG/2 ML VIAL 25 MCG IV PUSH ×4 (09:45→10:05)
--- NOTE | 2025-03-13 10:50 | ADMGEN ---
This patient, Luis Vasquez Jr., was admitted to [facility] Room 300-01. Patient/family oriented to hospital policies and general routines including ID bracelet, bed and alarms, visiting hours, pain management, procedures, bathroom and other care routines, personal items, smoking policy, room service/diet, and visiting hours. Information on how to activate the Rapid Response Team has been discussed. Patient/Family are encouraged to report perceived risks to care and to ask questions if they do not understand what they are told or what they should do.
[2025-03-13] MEDS: SODIUM CHLORIDE 0.9% IV 1,000 ML 125 ML IV CONT (10:59)
--- NOTE | 2025-03-13 12:54 | PM.IMCN ---
Assessment and Plan Assessment and plan (1) Hypertension: Code(s): I10 - Essential (primary) hypertension Status: Acute (2) Diabetes type 2: Code(s): E11.9 - Type 2 diabetes mellitus without complications Status: Acute (3) Osteoarthritis of right knee: Code(s): M17.11 - Unilateral primary osteoarthritis, right knee Status: Acute Plan 55-year-old male with past medical history of hypertension, diabetes, admitted after elective right total knee arthroplasty. 1. Status post elective right total knee arthroplasty: Postoperative care as per primary team Pain control PT/OT as per primary team 2. Type 2 diabetes mellitus: Continue with home Jardiance Blood glucose checked t.i.d. a.c. and HS Continue with low-dose sliding scale while in the hospital Hold metformin while in the hospital 3. History of hypertension: Resume home dose losartan 4. Postoperative DVT prophylaxis: Patient has been started on Xarelto as per primary team 5. Code status: Full 6. Disposition as per primary team HPI Date of Consult Consult date: 03/13/25 Requesting Physician: Gavin Mckenna MD Primary Care Provider: Yuridia Turner NP Consult Narrative Reason for consult: medical management post operatively Narrative: 55 year old male with past medical history of diabetes mellitus, hypertension admitted after elective total right knee arthroplasty. Hospitalist team was consulted for medical management of his diabetes and high blood pressure. Patient is resting comfortably. Denies any abdominal pain, nausea, vomiting. Last bowel movement this morning. No other complaints. Review of Systems Review of Systems: All systems reviewed & are unremarkable except as noted in HPI and below PMFSH Past Medical History Medical History Swelling of right elbow Hypertension Elevated LDL cholesterol level Diabetes type 2 Elevated blood sugar Olecranon bursitis of left elbow Screening for colon cancer Essential tremor Glaucoma right eye Tobacco abuse Snoring Cerumen impaction Right shoulder pain Elevated BP without diagnosis of hypertension Encounter to establish care Arthritis Surgical History Surgical History H/O shoulder surgery 10/07/23 H/O knee surgery 2022- right knee scope Previous back surgery 2011 Family History Family History Father Diabetes mellitus Heart disease Mother Lung cancer Sibling Alcoholism Social History Social History Smoking packs per day: 0.5 Smoking cigarettes per day: 10.0 Years smoked: 6 Smoking pack-years: 3.00 Smoking status: Former smoker Smokeless tobacco user: chewing tobacco Second hand tobacco smoke exposure: No Additional smoking assessment comments: CHEWING TOBACCO SINCE 1982, SWITCHED TO NICOTINE FREE CHEW 02/01/25 Alcohol intake: current Drinks per week: 18 Alcohol use details: QUIT MID-AUGUST 2023 WAS DRINKING A LOT OF BEER PRIOR TO THAT Substance use: never Substance use type: does not use Do You Feel Safe in your Home?: Yes Lack of Transportation: No Lack of Food: Never True Current Housing: I Have Housing Concerned About Future Housing: No Difficulty Paying Gas/Electric Bills: No Difficulty Paying for Meds: No Currently Unemployed: No Education: High School Diploma/GED Difficulty w/ Childcare or Family Care: No Living arrangements: with family Additional living arrangements comments: S.O. AND 2 CHILDREN Occupation/Education: occupation Additional occupation/education comments: road maintenance Gender identity (if verbalized by the patient): Male Spiritual care concerns: No Meds Home Medications and Allergies Home Medications ?Medication ?Instructions ?Recorded ?Confirmed ?Type latanoprost 0.005 % eye drops 1 drp EACH EYE HS 08/10/23 02/28/25 History blood-glucose meter #1 ea 07/05/24 02/28/25 Rx blood sugar diagnostic (Contour #100 ea 08/01/24 02/28/25 Rx Next Test Strips) lancets #100 ea 08/01/24 02/28/25 Rx empagliflozin 10 mg tablet 10 mg PO DAILY #30 tabs 09/20/24 02/28/25 Rx (Jardiance) losartan 50 mg tablet 50 mg PO DAILY #30 tabs 11/01/24 02/28/25 Rx diclofenac 75 mg oral tablet delay 1 ea topical DAILY PRN pain 02/28/25 02/28/25 History rel-capsaicin 0.025 % topical cream metformin 500 mg tablet,extended 500 mg PO BID 02/28/25 02/28/25 History release 24 hr (Glucophage XR) Allergies Allergy/AdvReac Type Severity Reaction Status Date / Time No Known Allergies Allergy Mild Verified 03/13/25 07:43 Vital Signs Vital Signs - 24 hr 03/13/25 07:00 03/13/25 09:32 03/13/25 09:45 Temperature 98.2 F 97.5 F L Pulse Rate 81 89 82 Respiratory Rate 16 14 12 Blood Pressure 139/78 138/67 151/93 H Pulse Oximetry 99 100 100 Oxygen Delivery Room Air Simple Face Mask Simple Face Mask Oxygen Flow Rate 8 8 03/13/25 10:00 03/13/25 10:15 03/13/25 10:28 Temperature Pulse Rate 83 80 82 Respiratory Rate 18 14 22 H Blood Pressure 140/74 145/78 H 134/87 Pulse Oximetry 95 95 96 Oxygen Delivery Room Air Room Air Room Air Oxygen Flow Rate 03/13/25 10:40 03/13/25 10:44 03/13/25 10:55 Temperature 96.3 F L 97.9 F Pulse Rate 85 86 Respiratory Rate 18 18 Blood Pressure 151/87 H 143/88 H Pulse Oximetry 98 97 Oxygen Delivery Room Air Oxygen Flow Rate 03/13/25 11:25 03/13/25 12:25 Temperature 98.0 F 98.4 F Pulse Rate 80 95 Respiratory Rate 16 18 Blood Pressure 128/78 122/72 Pulse Oximetry 97 98 Oxygen Delivery Oxygen Flow Rate Exam Narrative: No acute distress Const: General: comfortable HENMT: Mouth: Yes moist mucous membranes Eyes: Sclera: sclerae normal Pupils: Equal, round and reactive pupils present Neck: Neck: supple Resp: Auscultation: clear to auscultation bilaterally Cardio: Rate: regular rate Rhythm: regular rhythm GI: GI Palp: Yes Soft to palpation Auscultation: normal bowel sounds Skin: General skin exam: normal color Neuro: Speech: normal speech Extrem: Other: right knee in Walt wrapped postoperatively Psych: Mental Status: mental status grossly normal Quality VTE Prophylaxis VTE prophylaxis: pharmacologic ordered Hospitalist [facility] Advance Care Plan I have confirmed that the patient's Advanced Care Plan is present, code status is documented, or surrogate decision maker is listed in patient medical record.: Yes Medication Reconciliation I have utilized all available resources to obtain, update and review the patients current medications (includes all prescriptions, OTC, herbals, cannabis, and nutritional supplements).: Yes
[2025-03-13] MEDS: CELECOXIB 200 MG CAPSULE PO (15:59)
[2025-03-13] MEDS: SENNA/DOCUSATE SODIUM TABLET 2 TAB PO (15:59)
[2025-03-13] MEDS: RIVAROXABAN 10 MG TABLET PO (16:00)
[2025-03-13] MEDS: INSULIN ASPART (*BKC) 100 UNITS/ML SUB-Q ×2 (16:54→21:31)
[2025-03-13] MEDS: LATANOPROST 0.005% OP SOLN 2.5 ML BTL 1 DROP EACH EYE (21:30)
[2025-03-13] MEDS: HYDROcodone/acetaminophen (*CRX) 5-325 MG TABLET 1 TAB PO (22:01)
[2025-03-14 00:19] VITALS: BP 144/82; PULSE 87; RESP 20; TEMP 36.3; O2SAT 100
[2025-03-14] MEDS: HYDROcodone/acetaminophen (*CRX) 5-325 MG TABLET 1 TAB PO (04:16)
[2025-03-14 06:00] VITALS: BP 130/72; PULSE 82; RESP 20; TEMP 36.5; O2SAT 98
[2025-03-14] MEDS: ceFAZolin 2 GM in SODIUM CHLORIDE 0.9% IV 50 ML 100 ML IVPB (06:02)
[2025-03-14 06:18] LABS: Hematocrit 38.5 % (42.0-52.0); Hemoglobin 13.0 g/dL (14.0-18.0); Immature Granulocyte Percent A 0.3 % (0-0.5); Lymphocytes Absolute Auto 1.46 K/mm3 (0.9-3.2); Mean Corpuscular HGB Conc 33.8 g/dl (32-36); Mean Corpuscular Hemoglobin 33.8 pg (26-34); Mean Corpuscular Volume 100.0 fl (80-100); Nucleated Red Blood Cells Absolute Auto 0.000 K/mm3 (0.0-0.012); Nucleated Red Blood Cells Perc 0.0 % (0.0-0.2); Platelet Count Result 128 k/mm3 (150-375); Red Blood Count 3.85 M/mm3 (4.6-6.20); White Blood Count 7.9 K/mm3 (4.5-10.0)
[2025-03-14 06:40] LABS: Anion Gap 4 mmol/L (4-12); Blood Urea Nitrogen 15 mg/dL (9-20); Calcium 8.2 mg/dL (8.4-10.2); Carbon Dioxide 26 mmol/L (22-30); Chloride 103 mmol/L (98-107); Estimated CRCL calculation 113 ml/min; Estimated Glomerular Filt Rate > 60; Glucose 162 mg/dL (65-110); Potassium 4.0 mmol/L (3.4-5.0); Sodium 133 mmol/L (137-145)
--- NOTE | 2025-03-14 07:31 | PM.PNORT ---
Progress Note: A&P Assessment and Plan (1) History of knee replacement procedure of right knee: Code(s): Z96.651 - Presence of right artificial knee joint Status: Acute Assessment and Plan: Patient is status post total knee arthroplasty right for osteoarthritis. He has done well postoperatively and I think he can be dismissed home today. Dismissed medication [place] Xarelto and the cycling. He may be full weight-bearing. Follow up 10 to 14 days for sutures out. If he has any changes or problems he will call. Subjective Subjective Date/Time Seen: 03/14/25 07:31 Post Op day: 1 Principal diagnosis: Right total knee arthroplasty for osteoarthritis Review of Systems Musculoskeletal: Musculoskeletal: Reports arthralgias, Reports joint swelling and Reports stiffness Neurologic: Reports abnormal gait Exam Narrative: On exam his dressing is intact. Neurologically he is wiggling his toes. He is able ambulate without much difficulty. Pain is tolerable. Objective Data Vital Signs Vital Signs: Vital Signs - 24 hr 03/13/25 09:32 03/13/25 09:45 03/13/25 10:00 Temperature 97.5 F L Pulse Rate 89 82 83 Respiratory Rate 14 12 18 Blood Pressure 138/67 151/93 H 140/74 Pulse Oximetry 100 100 95 Oxygen Delivery Simple Face Mask Simple Face Mask Room Air Oxygen Flow Rate 8 8 03/13/25 10:15 03/13/25 10:28 03/13/25 10:40 Temperature 96.3 F L Pulse Rate 80 82 85 Respiratory Rate 14 22 H 18 Blood Pressure 145/78 H 134/87 151/87 H Pulse Oximetry 95 96 98 Oxygen Delivery Room Air Room Air Oxygen Flow Rate 03/13/25 10:44 03/13/25 10:55 03/13/25 11:25 Temperature 97.9 F 98.0 F Pulse Rate 86 80 Respiratory Rate 18 16 Blood Pressure 143/88 H 128/78 Pulse Oximetry 97 97 Oxygen Delivery Room Air Oxygen Flow Rate 03/13/25 12:25 03/13/25 13:09 03/13/25 13:44 Temperature 98.4 F Pulse Rate 95 Respiratory Rate 18 Blood Pressure 122/72 Pulse Oximetry 98 Oxygen Delivery Room Air Room Air Oxygen Flow Rate 03/13/25 15:59 03/13/25 20:19 03/13/25 22:00 Temperature 98.4 F 99.5 F Pulse Rate 88 80 Respiratory Rate 18 18 Blood Pressure 138/75 125/59 L Pulse Oximetry 97 97 Oxygen Delivery Room Air Oxygen Flow Rate Intake/Output Intake/Output: Intake & Output 03/11/25 03/12/25 03/13/25 03/14/25 23:59 23:59 23:59 23:59 Intake Total 930 50 Balance 930 50 Meds/Results Medications: Active Medications Generic Name Dose Route Start Last Admin Trade Name Freq PRN Reason Stop Dose Admin Hydrocodone Bitart/Acetaminophen 1 tab 03/13/25 10:34 03/14/25 04:16 Hydrocodone/Acetaminophen (*Crx) 5-325 Mg Tablet PO 1 tab Q4H PRN Administration Pain Rated 4-6 Hydrocodone Bitart/Acetaminophen 1 tab 03/13/25 10:34 Hydrocodone/Acetaminophen (*Crx) 7.5-325 Mg Tablet PO Q4H PRN Pain Rated 7-10 Celecoxib 200 mg 03/13/25 17:00 03/13/25 15:59 Celecoxib 200 Mg Capsule PO 200 mg BIDWM EVARISTO Administration Dextrose 12.5 gm 03/13/25 12:52 Dextrose 50% 25 Gm/50 Ml Syringe IV PUSH PRN PRN Hypoglycemia Protocol Diphenhydramine HCl 25 mg 03/13/25 10:34 Diphenhydramine Hcl Inj 50 Mg/Ml Vial IV PUSH Q6H PRN Itching Empagliflozin 10 mg 03/14/25 09:00 Empagliflozin 10 Mg Tablet PO DAILY EVARISTO Glucagon 1 mg 03/13/25 12:52 Glucagon For Inj 1 Mg Vial IM PRN PRN Hypoglycemia Protocol Glucose 15 gm 03/13/25 12:52 Glucose Oral Gel 15 Gm Of Glucse In 37.5 Gm Tube PO PRN PRN Hypoglycemia Protocol Hydromorphone HCl 1 mg 03/13/25 10:34 Hydromorphone Hcl Inj (*Crx) 1 Mg/Ml Syr IV PUSH Q2H PRN Breakthrough Pain Rated 7-10 or NPO Hydromorphone HCl 0.5 mg 03/13/25 10:34 Hydromorphone Hcl Inj (*Crx) 1 Mg/Ml Syr IV PUSH Q2H PRN Breakthrough Pain Rated 4-6 or NPO Ibuprofen 800 mg in 200 mls @ 400 mls/hr 03/13/25 10:34 Caldolor 800 Mg/200 Ml IVPB Q6H PRN Breakthrough Pain Rated 1-3 or NPO Dextrose 1,000 mls @ 100 mls/hr 03/13/25 12:52 Dextrose 5% 1,000 Ml IVPB PRN PRN Hypoglycemia Protocol Insulin Aspart 1 - 2 units 03/13/25 21:00 03/13/25 21:31 Insulin Aspart (*Bkc) 100 Units/Ml SUB-Q 1 units HS EVARISTO Administration Protocol Insulin Aspart 2 - 5 units 03/13/25 17:00 03/13/25 16:54 Insulin Aspart (*Bkc) 100 Units/Ml SUB-Q 2 units TIDWM EVARISTO Administration Protocol Latanoprost 1 drop 03/13/25 21:00 03/13/25 21:30 Latanoprost 0.005% Op Soln 2.5 Ml Btl EACH EYE 1 drop HS EVARISTO Administration Losartan Potassium 50 mg 03/13/25 12:55 03/13/25 15:33 Losartan Potassium 50 Mg Tablet PO Not Given DAILY [facility] Naloxone HCl 0.1 mg 03/13/25 10:34 Naloxone Hcl 0.4 Mg/Ml Vial IV PUSH Q2M PRN Opiate Reversal Ondansetron HCl 4 mg 03/13/25 10:34 Ondansetron Inj 4 Mg/2 Ml Vial IV PUSH Q4H PRN Nausea And Vomiting Polyethylene Glycol 17 gm 03/14/25 09:00 Polyethylene Glycol 3350 17 Gm Powd.Pack PO QAM [facility] Rivaroxaban 10 mg 03/13/25 17:00 03/13/25 16:00 Rivaroxaban 10 Mg Tablet PO 03/24/25 17:01 10 mg DAILY@17 [facility] Administration Senna/Docusate Sodium 2 tab 03/13/25 17:00 03/13/25 15:59 Senna/Docusate Sodium Tablet PO 2 tab BID [facility] Administration Tramadol HCl 50 mg 03/13/25 10:34 Tramadol Hcl (*Crx) 50 Mg Tablet PO Q4H PRN Pain Rated 1-3 Radiology Results: ITS Impressions Knee X-Ray 03/13/25 09:52 IMPRESSION: 1. Right total knee arthroplasty, negative for postoperative purposes. Labs Labs: Laboratory Results - last 24 hr 03/13/25 03/13/25 03/13/25 09:35 11:16 16:09 WBC RBC Hgb Hct MCV MCH MCHC RDW Plt Count MPV Immature Gran % (Auto) Neut % (Auto) Lymph % (Auto) [place] % (Auto) Eos % (Auto) Baso % (Auto) Lymph # (Auto) [place] # (Auto) Eos # (Auto) Baso # (Auto) Abs Immat Gran (auto) Absolute Neuts (auto) Absolute Nucleated RBC Nucleated RBC % Sodium Potassium Chloride Carbon Dioxide Anion Gap BUN Creatinine Estim Creat Clear Calc Estimated GFR Glucose POC Capillary Glucose 166 H 175 H 247 H Calcium 03/13/25 03/14/25 20:51 05:45 WBC 7.9 RBC 3.85 L Hgb 13.0 L Hct 38.5 L MCV 100.0 MCH 33.8 MCHC 33.8 RDW 12.6 Plt Count 128 L MPV 9.6 Immature Gran % (Auto) 0.3 Neut % (Auto) 72.5 Lymph % (Auto) 18.4 [place] % (Auto) 7.8 Eos % (Auto) 0.6 Baso % (Auto) 0.4 Lymph # (Auto) 1.46 [place] # (Auto) 0.6 Eos # (Auto) 0.1 Baso # (Auto) 0.0 Abs Immat Gran (auto) 0.02 Absolute Neuts (auto) 5.7 Absolute Nucleated RBC 0.000 Nucleated RBC % 0.0 Sodium 133 L Potassium 4.0 Chloride 103 Carbon Dioxide 26 Anion Gap 4 BUN 15 Creatinine 0.75 Estim Creat Clear Calc 113 Estimated GFR > 60 Glucose 162 H POC Capillary Glucose 217 H Calcium 8.2 L
[2025-03-14 08:00] VITALS: BP 147/82; PULSE 80; RESP 18; TEMP 37.6; O2SAT 98
[2025-03-14] MEDS: EMPAGLIFLOZIN 10 MG TABLET PO (08:03)
[2025-03-14] MEDS: CELECOXIB 200 MG CAPSULE PO (08:03)
[2025-03-14] MEDS: SENNA/DOCUSATE SODIUM TABLET 2 TAB PO (08:03)
[2025-03-14] MEDS: LOSARTAN POTASSIUM 50 MG TABLET PO (08:03)
[2025-03-14] MEDS: HYDROcodone/acetaminophen (*CRX) 7.5-325 MG TABLET 1 TAB PO (08:06)
--- NOTE | 2025-03-14 08:34 | PCOTNOTE ---
The patient treatment was not able to be completed patient wants to eat breakfast and rest first. Will plan to continue treatment per plan of care.
--- NOTE | 2025-03-14 10:01 | P.PNIM_ITS ---
Progress Note: A&P Assessment and Plan (1) Hypertension: Code(s): I10 - Essential (primary) hypertension Status: Acute (2) Diabetes type 2: Code(s): E11.9 - Type 2 diabetes mellitus without complications Status: Acute (3) Osteoarthritis of right knee: Code(s): M17.11 - Unilateral primary osteoarthritis, right knee Status: Acute Plan 55-year-old male with past medical history of hypertension, diabetes, admitted after elective right total knee arthroplasty. 1. Status post elective right total knee arthroplasty: Postoperative care as per primary team Pain control PT/OT as per primary team Cleared for discharge per ortho will need IS education - discharge with IS and instructions on how to use 2. Type 2 diabetes mellitus: Continue with home Jardiance Blood glucose checked t.i.d. a.c. and HS Continue with low-dose sliding scale while in the hospital Hold metformin while in the hospital- resume home meds with discharge 3. History of hypertension: Resume home dose losartan 4. Postoperative DVT prophylaxis: Patient has been started on Xarelto as per primary team 5. Code status: Full 6. Disposition as per primary team Time Spent With Patient Time with patient: 25 - 35 minutes Subjective Date/time seen: 03/14/25 10:01 Interval history: 55-year-old male with past medical history of hypertension, diabetes, admitted after elective right total knee arthroplasty. Status post elective right total knee arthroplasty. Pt is doing well. BS controlled. vs reviewed and stable Review of Systems Review of Systems: All systems reviewed & are unremarkable except as noted in HPI and below Exam Narrative: No acute distress Const: General: comfortable HENMT: Mouth: Yes moist mucous membranes Eyes: Sclera: sclerae normal Pupils: Equal, round and reactive pupils present Neck: Neck: supple Resp: Auscultation: clear to auscultation bilaterally Cardio: Rate: regular rate Rhythm: regular rhythm GI: Auscultation: normal bowel sounds Skin: General skin exam: normal color Neuro: Cranial nerves: Yes Equal, round and reactive pupils present Speech: normal speech Extrem: Other: right knee in Walt wrapped postoperatively Psych: Mental Status: mental status grossly normal Objective Data Vital Signs Vital Signs: Vital Signs - 24 hr 03/13/25 10:15 03/13/25 10:28 03/13/25 10:40 Temperature 96.3 F L Pulse Rate 80 82 85 Respiratory Rate 14 22 H 18 Blood Pressure 145/78 H 134/87 151/87 H Pulse Oximetry 95 96 98 Oxygen Delivery Room Air Room Air 03/13/25 10:44 03/13/25 10:55 03/13/25 11:25 Temperature 97.9 F 98.0 F Pulse Rate 86 80 Respiratory Rate 18 16 Blood Pressure 143/88 H 128/78 Pulse Oximetry 97 97 Oxygen Delivery Room Air 03/13/25 12:25 03/13/25 13:09 03/13/25 13:44 Temperature 98.4 F Pulse Rate 95 Respiratory Rate 18 Blood Pressure 122/72 Pulse Oximetry 98 Oxygen Delivery Room Air Room Air 03/13/25 15:59 03/13/25 20:19 03/13/25 22:00 Temperature 98.4 F 99.5 F Pulse Rate 88 80 Respiratory Rate 18 18 Blood Pressure 138/75 125/59 L Pulse Oximetry 97 97 Oxygen Delivery Room Air 03/14/25 00:19 03/14/25 06:00 03/14/25 08:00 Temperature 97.3 F L 97.7 F 99.7 F H Pulse Rate 87 82 80 Respiratory Rate 20 20 18 Blood Pressure 144/82 H 130/72 147/82 H Pulse Oximetry 100 98 98 Oxygen Delivery 03/14/25 09:28 Temperature Pulse Rate Respiratory Rate Blood Pressure Pulse Oximetry Oxygen Delivery Room Air Intake/Output Intake/Output: Intake & Output 03/11/25 03/12/25 03/13/25 03/14/25 23:59 23:59 23:59 23:59 Intake Total 930 1030 Balance 930 1030 Meds/Results Medications: Active Medications Generic Name Dose Route Start Last Admin Trade Name Freq PRN Reason Stop Dose Admin Acetaminophen 650 mg 03/14/25 07:45 Acetaminophen 325 Mg Tablet PO Q6H PRN Mild Pain (1-3) or Fever Hydrocodone Bitart/Acetaminophen 1 tab 03/13/25 10:34 03/14/25 04:16 Hydrocodone/Acetaminophen (*Crx) 5-325 Mg Tablet PO 1 tab Q4H PRN Administration Pain Rated 4-6 Hydrocodone Bitart/Acetaminophen 1 tab 03/13/25 10:34 03/14/25 08:06 Hydrocodone/Acetaminophen (*Crx) 7.5-325 Mg Tablet PO 1 tab Q4H PRN Administration Pain Rated 7-10 Celecoxib 200 mg 03/13/25 17:00 03/14/25 08:03 Celecoxib 200 Mg Capsule PO 200 mg BIDWM EVARISTO Administration Dextrose 12.5 gm 03/13/25 12:52 Dextrose 50% 25 Gm/50 Ml Syringe IV PUSH PRN PRN Hypoglycemia Protocol Diphenhydramine HCl 25 mg 03/13/25 10:34 Diphenhydramine Hcl Inj 50 Mg/Ml Vial IV PUSH Q6H PRN Itching Empagliflozin 10 mg 03/14/25 09:00 03/14/25 08:03 Empagliflozin 10 Mg Tablet PO 10 mg DAILY EVARISTO Administration Glucagon 1 mg 03/13/25 12:52 Glucagon For Inj 1 Mg Vial IM PRN PRN Hypoglycemia Protocol Glucose 15 gm 03/13/25 12:52 Glucose Oral Gel 15 Gm Of Glucse In 37.5 Gm Tube PO PRN PRN Hypoglycemia Protocol Hydromorphone HCl 1 mg 03/13/25 10:34 Hydromorphone Hcl Inj (*Crx) 1 Mg/Ml Syr IV PUSH Q2H PRN Breakthrough Pain Rated 7-10 or NPO Hydromorphone HCl 0.5 mg 03/13/25 10:34 Hydromorphone Hcl Inj (*Crx) 1 Mg/Ml Syr IV PUSH Q2H PRN Breakthrough Pain Rated 4-6 or NPO Ibuprofen 800 mg in 200 mls @ 400 mls/hr 03/13/25 10:34 Caldolor 800 Mg/200 Ml IVPB Q6H PRN Breakthrough Pain Rated 1-3 or NPO Dextrose 1,000 mls @ 100 mls/hr 03/13/25 12:52 Dextrose 5% 1,000 Ml IVPB PRN PRN Hypoglycemia Protocol Insulin Aspart 1 - 2 units 03/13/25 21:00 03/13/25 21:31 Insulin Aspart (*Bkc) 100 Units/Ml SUB-Q 1 units HS EVARISTO Administration Protocol Insulin Aspart 2 - 5 units 03/13/25 17:00 03/14/25 08:03 Insulin Aspart (*Bkc) 100 Units/Ml SUB-Q Not Given TIDWM EVARISTO Protocol Latanoprost 1 drop 03/13/25 21:00 03/13/25 21:30 Latanoprost 0.005% Op Soln 2.5 Ml Btl EACH EYE 1 drop HS EVARISTO Administration Losartan Potassium 50 mg 03/13/25 12:55 03/14/25 08:03 Losartan Potassium 50 Mg Tablet PO 50 mg DAILY EVARISTO Administration Miscellaneous Information 1 each 03/14/25 07:37 Central Supply Item XX 03/15/25 07:36 PRN PRN Informational Naloxone HCl 0.1 mg 03/13/25 10:34 Naloxone Hcl 0.4 Mg/Ml Vial IV PUSH Q2M PRN Opiate Reversal Ondansetron HCl 4 mg 03/13/25 10:34 Ondansetron Inj 4 Mg/2 Ml Vial IV PUSH Q4H PRN Nausea And Vomiting Polyethylene Glycol 17 gm 03/14/25 09:00 03/14/25 08:03 Polyethylene Glycol 3350 17 Gm Powd.Pack PO 17 gm QAM EVARISTO Administration Rivaroxaban 10 mg 03/13/25 17:00 03/13/25 16:00 Rivaroxaban 10 Mg Tablet PO 03/24/25 17:01 10 mg DAILY@17 EVARISTO Administration Senna/Docusate Sodium 2 tab 03/13/25 17:00 03/14/25 08:03 Senna/Docusate Sodium Tablet PO 2 tab BID EVARISTO Administration Tramadol HCl 50 mg 03/13/25 10:34 Tramadol Hcl (*Crx) 50 Mg Tablet PO Q4H PRN Pain Rated 1-3 Radiology Results: ITS Impressions Knee X-Ray 03/13/25 09:52 IMPRESSION: 1. Right total knee arthroplasty, negative for postoperative purposes. Labs Labs: Laboratory Results - last 24 hr 03/13/25 03/13/25 03/13/25 11:16 16:09 20:51 WBC RBC Hgb Hct MCV MCH MCHC RDW Plt Count MPV Immature Gran % (Auto) Neut % (Auto) Lymph % (Auto) [place] % (Auto) Eos % (Auto) Baso % (Auto) Lymph # (Auto) [place] # (Auto) Eos # (Auto) Baso # (Auto) Abs Immat Gran (auto) Absolute Neuts (auto) Absolute Nucleated RBC Nucleated RBC % Sodium Potassium Chloride Carbon Dioxide Anion Gap BUN Creatinine Estim Creat Clear Calc Estimated GFR Glucose POC Capillary Glucose 175 H 247 H 217 H Calcium 03/14/25 03/14/25 05:45 07:51 WBC 7.9 RBC 3.85 L Hgb 13.0 L Hct 38.5 L MCV 100.0 MCH 33.8 MCHC 33.8 RDW 12.6 Plt Count 128 L MPV 9.6 Immature Gran % (Auto) 0.3 Neut % (Auto) 72.5 Lymph % (Auto) 18.4 [place] % (Auto) 7.8 Eos % (Auto) 0.6 Baso % (Auto) 0.4 Lymph # (Auto) 1.46 [place] # (Auto) 0.6 Eos # (Auto) 0.1 Baso # (Auto) 0.0 Abs Immat Gran (auto) 0.02 Absolute Neuts (auto) 5.7 Absolute Nucleated RBC 0.000 Nucleated RBC % 0.0 Sodium 133 L Potassium 4.0 Chloride 103 Carbon Dioxide 26 Anion Gap 4 BUN 15 Creatinine 0.75 Estim Creat Clear Calc 113 Estimated GFR > 60 Glucose 162 H POC Capillary Glucose 153 H Calcium 8.2 L Quality VTE Prophylaxis VTE prophylaxis: pharmacologic ordered
[2025-03-14 10:31] VITALS: TEMP 37.4
[2025-03-14] MEDS: ACETAMINOPHEN 325 MG TABLET 650 MG PO (10:31)
[2025-03-14 12:02] VITALS: TEMP 37
[2025-03-14 12:13] VITALS: BP 121/69; PULSE 76; RESP 18; TEMP 36.4; O2SAT 99
== END 2025-03-14 12:20 | disposition home or self-care (01) ==
LOC: ANHSURGERY 06:05 → ANH3MEDSUR 10:35
PROVIDERS: PCP Nurse Practitioner Family; Visit Provider Orthopaedic Surgery
PROC: (CPT 27447; principal; 2025-03-13 07:30)
DX: M17.11 Unilateral primary osteoarthritis, right knee (principal); G89.18 Other acute postprocedural pain; E11.9 Type 2 diabetes mellitus without complications; I10 Essential (primary) hypertension; G25.0 Essential tremor; E66.9 Obesity, unspecified; Z68.30 Body mass index [BMI] 30.0-30.9, adult; Z79.84 Long term (current) use of oral hypoglycemic drugs; Z98.890 Other specified postprocedural states; Z98.1 Arthrodesis status; Z87.891 Personal history of nicotine dependence; Z80.1 Family history of malignant neoplasm of trachea, bronchus and lung; Z82.49 Family history of ischemic heart disease and other diseases of the circulatory system
CPT/HCPCS: 64447; 27447; 36415; 73560; 80048; 82948; 85025; 97110; 97161; 97165; 97530; J0690; A9270; C1713; C1776; J0166; J1100; J1171; J1815; J1885; J2003; J2250; J2270; J2405; J2704; J2795; J3010; J3373; J7030; J7120